=== PATIENT | male | born 1975 | race Two or more races ===

== ENCOUNTER 2020-10-11 05:00 | Day surgery (SDC) | payer OTHER ==
[~2020-10-11 05:00] MED LIST: PRILOSEC OTC20 MG PO
[2020-10-11] MEDS ORDERED: ULTRACET PO (14:46)
[2020-10-11] MEDS ORDERED: DUI500 PO (14:46)
[2020-10-11] MEDS ORDERED: ASA325 M1 PO (14:46)
== END 2020-10-11 20:00 | disposition home or self-care (01) ==
LOC: CIR.AMB 05:00
PROVIDERS: ATTEND Orthopaedic Surgery
DX: S83.232A Complex tear of medial meniscus, current injury, left knee, initial encounter (principal); M94.262 Chondromalacia, left knee; M67.362 Transient synovitis, left knee; Z20.822 Contact with and (suspected) exposure to COVID-19